=== PATIENT | female | born 1960 | race African-American/Black ===

== ENCOUNTER 2018-07-21 11:40 | Inpatient (IN) | payer MEDICARE, MEDICAID ==
[~2018-07-21] VITALS: Ht 162.6 cm; Wt 145.1 kg
[2018-07-21] MEDS ORDERED: HYDROCODONE/ACETAMINOPHEN 5/325MG TABLET PO ONE (16:30)
[2018-07-21] MEDS ORDERED: IBUPROFEN 800MG TABLET PO ONE (16:30)
[2018-07-22 10:50] LABS: BASOPHILS % 1.1 % (0.0-2.0); EOSINOPHILS % 1.1 % (0.0-5.0); HEMATOCRIT. 43.5 % (36.0-48.0); HEMOGLOBIN. 13.7 g/dL (12.0-16.0); LYMPHOCYTES % 21.4 % (20.0-50.0); MEAN CORPUSCULAR HEMOGLOBIN 25.8 pg (28.0-32.0); MEAN CORPUSCULAR VOLUME 82.1 fL (81.0-99.0); MEAN PLATELET VOLUME 9.2 fl (7.4-10.4); MONOCYTES % 10.3 % (2.0-8.0); NEUTROPHILS % 66.1 % (40.0-76.0); PLATELET 312 x1000/uL (130-400); RED CELL DISTRIBUTION WIDTH 17.3 % (11.6-14.6)
[2018-07-22 10:51] LABS: CHLORIDE 107 mEq/L (98-107)
[2018-07-22] MEDS ORDERED: MAGNESIUM/ALUMINUM HYDROXIDE/SIMETHICONE 30ML UDC PO PRN (12:00)
[2018-07-22] MEDS ORDERED: ONDANSETRON HCL 4MG/2ML INJ IV PRN (12:00)
[2018-07-22] MEDS ORDERED: ZOLPIDEM TARTRATE 5MG TABLET PO PRN (12:00)
[2018-07-22] MEDS ORDERED: ACETAMINOPHEN 325MG TABLET PO PRN (12:00)
[2018-07-22] MEDS ORDERED: LORAZEPAM 0.5MG TABLET PO PRN (12:00)
[2018-07-22] MEDS ORDERED: IPRATROPIUM/ALBUTEROL 0.5-3(2.5)MG/3ML NEB INH PRN (12:00)
[2018-07-22] MEDS ORDERED: DOCUSATE SODIUM 100MG CAPSULE PO PRN (12:00)
[2018-07-22] MEDS ORDERED: TRAMADOL 50MG TABLET PO PRN (12:00)
[2018-07-22] MEDS ORDERED: GUAIFENESIN 200MG/10ML SUGAR FREE UDC PO PRN (12:00)
[2018-07-22] MEDS ORDERED: NA PHOS,M-B/NA PHOS,DI-BA ENEMA 118ML PR PRN (12:00)
[2018-07-22 21:06] LABS: CLARITY URINE CLEAR (CLEAR); COLOR URINE YELLOW (YELLOW); KETONES URINE NEGATIVE (NEGATIVE); LEUKOCYTE ESTERASE URINE NEGATIVE (NEGATIVE); NITRITE URINE NEGATIVE (NEGATIVE); OCCULT BLOOD URINE NEGATIVE (NEGATIVE); PH URINE 6.5 (4.5-8.0); PROTEIN URINE NEGATIVE (NEGATIVE); SPECIFIC GRAVITY URINE 1.017 (1.005-1.030); UROBILINOGEN URINE 0.2 E.U./dL (0.2-1.0)
[2018-07-22 21:28] LABS: *AMPHETAMINES SCREEN URINE NEGATIVE (NEGATIVE); *BARBITURATES SCREEN URINE NEGATIVE (NEGATIVE); *BENZODIAZEPINES SCREEN URINE NEGATIVE (NEGATIVE); *COCAINE SCREEN URINE NEGATIVE (NEGATIVE); METHADONE URINE SCREEN NEGATIVE (NEGATIVE); OPIATES URINE SCREEN PRESUMTIVE POSITIVE (NEGATIVE)
[2018-07-22 21:29] LABS: CANNABINOID URINE SCREEN NEGATIVE (NEGATIVE); PHENCYCLIDINE URINE SCREEN NEGATIVE (NEGATIVE)
[2018-07-22] MEDS: LISINOPRIL 20MG TABLET PO SCH (22:00)
[2018-07-22] MEDS: FAMOTIDINE 20MG TABLET PO SCH (22:00)
[2018-07-22 23:00] VITALS: BP 152/76
[2018-07-22] MEDS: ATORVASTATIN CALCIUM 10MG TABLET PO SCH (23:00)
[2018-07-23] VITALS: BP 164/70
[2018-07-23] MEDS: LISINOPRIL 20MG TABLET PO SCH ×2 (00:06→09:00)
[2018-07-23] MEDS: LEVETIRACETAM 500MG TABLET PO SCH ×2 (00:06→09:38)
[2018-07-23] MEDS: CLONIDINE 0.1MG TABLET PO PRN (00:38)
[2018-07-23 04:00] VITALS: BP 144/71
[2018-07-23 08:00] VITALS: BP 149/69
[2018-07-23] MEDS: FAMOTIDINE 20MG TABLET PO SCH (09:00)
[2018-07-23] MEDS: CLOPIDOGREL 75MG TABLET PO SCH (09:37)
[2018-07-23] MEDS: ENOXAPARIN 40MG/0.4ML SYR SUBCUT SCH (09:39)
[2018-07-23 12:00] VITALS: BP 159/61
[2018-07-23] MEDS: HYDRALAZINE HCL 50MG TABLET PO SCH (12:29)
[2018-07-23 16:00] VITALS: BP 134/59
[2018-07-23 20:00] VITALS: BP 126/67
[2018-07-24] VITALS: BP 153/61
[2018-07-24] MEDS: FAMOTIDINE 20MG TABLET PO SCH ×3 (00:32→21:00)
[2018-07-24] MEDS: LEVETIRACETAM 500MG TABLET PO SCH ×3 (00:33→21:30)
[2018-07-24] MEDS: HYDRALAZINE HCL 50MG TABLET PO SCH ×4 (00:33→23:32)
[2018-07-24] MEDS: ATORVASTATIN CALCIUM 10MG TABLET PO SCH ×2 (00:33→00:51)
[2018-07-24] MEDS: METOPROLOL TARTRATE 25MG TABLET PO SCH ×3 (00:34→21:30)
[2018-07-24] MEDS: ENOXAPARIN 40MG/0.4ML SYR SUBCUT SCH ×3 (00:35→21:31)
[2018-07-24 04:00] VITALS: BP 138/74
[2018-07-24 08:00] VITALS: BP 198/90
[2018-07-24] MEDS: CLOPIDOGREL 75MG TABLET PO SCH (09:02)
[2018-07-24 12:48] VITALS: BP 159/81
[2018-07-24 13:08] LABS: CLARITY URINE CLEAR (CLEAR); COLOR URINE YELLOW (YELLOW); KETONES URINE NEGATIVE (NEGATIVE); LEUKOCYTE ESTERASE URINE NEGATIVE (NEGATIVE); NITRITE URINE NEGATIVE (NEGATIVE); OCCULT BLOOD URINE NEGATIVE (NEGATIVE); PH URINE 6.5 (4.5-8.0); PROTEIN URINE NEGATIVE (NEGATIVE); SPECIFIC GRAVITY URINE 1.011 (1.005-1.030); UROBILINOGEN URINE 0.2 E.U./dL (0.2-1.0)
[2018-07-24] MEDS ORDERED: CLON-457 MT (16:10)
[2018-07-24] MEDS ORDERED: CARV3.1242 MT (16:10)
[2018-07-24] MEDS ORDERED: KEPPSOL MT (16:10)
[2018-07-24] MEDS ORDERED: HYDR-4135 MT (16:10)
[2018-07-24 16:54] VITALS: BP 167/65
[2018-07-24 20:00] VITALS: BP 149/70
[2018-07-25] VITALS: BP_SYST 146; BP_SYST 154; BP_DIAS 70; BP_DIAS 76
[2018-07-25 04:00] VITALS: BP 154/70
[2018-07-25] MEDS: HYDRALAZINE HCL 50MG TABLET PO SCH ×3 (06:12→22:26)
[2018-07-25 08:00] VITALS: BP 140/69
[2018-07-25] MEDS: ENOXAPARIN 40MG/0.4ML SYR SUBCUT SCH ×2 (09:00→20:39)
[2018-07-25] MEDS: FAMOTIDINE 20MG TABLET PO SCH ×2 (09:00→20:55)
[2018-07-25] MEDS: CLOPIDOGREL 75MG TABLET PO SCH (09:00)
[2018-07-25] MEDS: LEVETIRACETAM 500MG TABLET PO SCH ×2 (09:15→20:38)
[2018-07-25] MEDS: METOPROLOL TARTRATE 25MG TABLET PO SCH ×2 (09:15→20:38)
[2018-07-25 12:00] VITALS: BP 146/62
[2018-07-25 16:00] VITALS: BP 151/78
[2018-07-25 20:00] VITALS: BP 145/62
[2018-07-25] MEDS: ATORVASTATIN CALCIUM 10MG TABLET PO SCH (20:55)
[2018-07-26] VITALS (8 sets, daily range): BP systolic 122–153; BP diastolic 53–76
[2018-07-26] MEDS: HYDRALAZINE HCL 50MG TABLET PO SCH ×3 (05:59→22:02)
[2018-07-26] MEDS: FAMOTIDINE 20MG TABLET PO SCH ×2 (09:00→21:00)
[2018-07-26] MEDS: CLOPIDOGREL 75MG TABLET PO SCH (09:00)
[2018-07-26] MEDS: LEVETIRACETAM 500MG TABLET PO SCH ×2 (09:53→21:58)
[2018-07-26] MEDS: METOPROLOL TARTRATE 25MG TABLET PO SCH ×2 (09:53→21:58)
[2018-07-26] MEDS: ENOXAPARIN 40MG/0.4ML SYR SUBCUT SCH (09:54)
[2018-07-26] MEDS: ATORVASTATIN CALCIUM 10MG TABLET PO SCH (21:00)
[2018-07-26] MEDS: APIXABAN 5 MG TABLET PO SCH (21:57)
[2018-07-27] VITALS: BP 139/61
[2018-07-27 04:00] VITALS: BP 137/54
[2018-07-27] MEDS: HYDRALAZINE HCL 50MG TABLET PO SCH ×3 (06:36→22:44)
[2018-07-27 08:00] VITALS: BP 145/98
[2018-07-27] MEDS: FAMOTIDINE 20MG TABLET PO SCH ×2 (09:00→21:00)
[2018-07-27] MEDS: CLOPIDOGREL 75MG TABLET PO SCH ×2 (09:00→09:13)
[2018-07-27] MEDS: LEVETIRACETAM 500MG TABLET PO SCH ×2 (09:12→20:58)
[2018-07-27] MEDS: APIXABAN 5 MG TABLET PO SCH ×2 (09:13→20:58)
[2018-07-27] MEDS: METOPROLOL TARTRATE 25MG TABLET PO SCH ×2 (09:13→21:00)
[2018-07-27 11:49] VITALS: BP 169/68
[2018-07-27 15:49] VITALS: BP 130/57
[2018-07-27 20:00] VITALS: BP 159/67
[2018-07-27] MEDS: ATORVASTATIN CALCIUM 10MG TABLET PO SCH (21:00)
[2018-07-28] VITALS (7 sets, daily range): BP systolic 119–184; BP diastolic 47–91
[2018-07-28] MEDS: CLONIDINE 0.1MG TABLET PO PRN (02:29)
[2018-07-28] MEDS: HYDRALAZINE HCL 50MG TABLET PO SCH ×2 (06:09→15:20)
[2018-07-28] MEDS: FAMOTIDINE 20MG TABLET PO SCH (09:00)
[2018-07-28] MEDS: CLOPIDOGREL 75MG TABLET PO SCH (09:00)
[2018-07-28] MEDS: LEVETIRACETAM 500MG TABLET PO SCH (10:21)
[2018-07-28] MEDS: METOPROLOL TARTRATE 25MG TABLET PO SCH (10:22)
[2018-07-28] MEDS: APIXABAN 5 MG TABLET PO SCH (10:22)
== END 2018-07-28 16:30 | DRG 948 ==
LOC: ER 13:00 → SUPCPDRO 07-22 09:54 → 6EST 07-22 09:57 → EDRESERV 07-22 12:05 → CANRESERV 07-22 12:05 → ENRESERV 07-22 12:05 → CANRESERV 07-22 17:15 → ENRESERV 07-22 17:15
PROVIDERS: ADMIT Internal Medicine; ATTEND Internal Medicine
DX: R53.1 Weakness (principal); I69.354 Hemiplegia and hemiparesis following cerebral infarction affecting left non-dominant side; E66.01 Morbid (severe) obesity due to excess calories; E78.00 Pure hypercholesterolemia, unspecified; I10 Essential (primary) hypertension; I48.91 Unspecified atrial fibrillation; V89.2XXA Person injured in unspecified motor-vehicle accident, traffic, initial encounter; Y92.410 Unspecified street and highway as the place of occurrence of the external cause; Z79.02 Long term (current) use of antithrombotics/antiplatelets; Z99.3 Dependence on wheelchair; Y93.89 Activity, other specified; Y99.8 Other external cause status; Z88.8 Allergy status to other drugs, medicaments and biological substances
CPT/HCPCS: 36415; 71045; 72128; 72131; 73030; 80048; 80061; 80305; 83036; 93005; 93306; 93970; 97162; 97166; 99284; 99285; J1650

== ENCOUNTER 2021-08-06 10:33 | Emergency (ER) | payer MEDICARE, MEDICAID ==
[~2021-08-06] VITALS: Ht 167.6 cm; Wt 150.0 kg
[~2021-08-06 10:33] MED LIST: CARV3.1242 MT; CLON-457 MT; HYDR-4135 MT; KEPPSOL MT
[2021-08-06] MEDS ORDERED: ACETAMINOPHEN 325MG TABLET PO STA (10:54)
[2021-08-06 11:46] LABS: CHLORIDE 106 mEq/L (98-107)
[2021-08-06 11:48] LABS: BASOPHILS % 0.8 % (0.0-2.0); EOSINOPHILS % 1.7 % (0.0-5.0); HEMATOCRIT. 43.6 % (36.0-48.0); HEMOGLOBIN. 14.1 g/dL (12.0-16.0); LYMPHOCYTES % 28.5 % (20.0-50.0); MEAN CORPUSCULAR HEMOGLOBIN 25.3 pg (28.0-32.0); MEAN PLATELET VOLUME 9.1 fl (7.4-10.4); MONOCYTES % 8.4 % (2.0-8.0); NEUTROPHILS % 60.6 % (40.0-76.0); PLATELET 317 x1000/uL (130-400); RED BLOOD CELL COUNT 5.58 mill/uL (4.2-5.4); RED CELL DISTRIBUTION WIDTH 17.2 % (11.6-14.6)
[2021-08-06 14:27] LABS: CLARITY URINE TURBID (CLEAR); COLOR URINE YELLOW (YELLOW); KETONES URINE NEGATIVE (NEGATIVE); LEUKOCYTE ESTERASE URINE 3+ (NEGATIVE); NITRITE URINE POSITIVE (NEGATIVE); OCCULT BLOOD URINE 2+ (NEGATIVE); PROTEIN URINE TRACE (NEGATIVE); SPECIFIC GRAVITY URINE 1.016 (1.005-1.030); UROBILINOGEN URINE 0.2 E.U./dL (0.2-1.0)
[2021-08-06] MEDS ORDERED: CEFTRIAXONE 1 G PREMIX 50 ML IV ONE (14:45)
[2021-08-06] MEDS ORDERED: CEPH500C2 MT (14:58)
[2021-08-06 18:45] VITALS: BP 124/80
== END 2021-08-06 22:16 | disposition home or self-care (01) ==
LOC: ER 10:51
DX: I11.9 Hypertensive heart disease without heart failure (principal); N39.0 Urinary tract infection, site not specified; G40.909 Epilepsy, unspecified, not intractable, without status epilepticus; I48.91 Unspecified atrial fibrillation; Z79.01 Long term (current) use of anticoagulants; I69.354 Hemiplegia and hemiparesis following cerebral infarction affecting left non-dominant side; Z88.8 Allergy status to other drugs, medicaments and biological substances
CPT/HCPCS: 36415; 71045; 80053; 81003; 84484; 85025; 87077; 87186; 99285